=== PATIENT | male | born 1990 | race African-American/Black ===

== ENCOUNTER → 2018-04-12 | Outpatient (CLI) | payer OTHER | LOC: M LRY 18:30 | DX: S99.922A Unspecified injury of left foot, initial encounter (principal); W20.8XXA Other cause of strike by thrown, projected or falling object, initial encounter; Y99.0 Civilian activity done for income or pay; Y92.89 Other specified places as the place of occurrence of the external cause | CPT/HCPCS: 73630; G0463 ==